=== PATIENT | male | born 1955 | race Caucasian/White ===

== ENCOUNTER 2019-01-17 08:38 | Day surgery (SDC) | payer MEDICARE, OTHER ==
[~2019-01-17] VITALS: Ht 175.3 cm; Wt 112.3 kg
[~2019-01-17 08:38] MED LIST: ASPI81EC; ATEN100 PO; ATEN25; ATOR10; Amlodipine Besyl5 MG PO; FEXPSEER; Fish Oil 10001000 MG PO; LANS30EC; LISI20 PO; MULTI VITAMIN1 EACH PO; OXYACE10 PO; RXLORA1 PO; RXOXYACE PO; TAMS.4ER PO; VITAMIN D400 UNI1 PO
== END 2019-01-17 11:01 | disposition home or self-care (01) ==
LOC: ORSCSDS 08:38
PROVIDERS: Internal Medicine Gastroenterology
PROC: 0DBE8ZX Excision of Large Intestine, Via Natural or Artificial Opening Endoscopic, Diagnostic (ICD-10-PCS; principal; 2019-01-17 10:00)
DX: R19.4 Change in bowel habit (principal); Z80.0 Family history of malignant neoplasm of digestive organs; K57.30 Diverticulosis of large intestine without perforation or abscess without bleeding; I10 Essential (primary) hypertension; Z79.899 Other long term (current) drug therapy
CPT/HCPCS: 88305; J2704; J7120

== ENCOUNTER 2023-12-26 09:10 | Day surgery (SDC) | payer MEDICARE, OTHER ==
[~2023-12-26] VITALS: Ht 175.3 cm; Wt 107.8 kg
[~2023-12-26 09:10] MED LIST changes: +Lactated Ringer's 1,000 ML IV ONE; +propofoL 50 ML IV ONE
[2023-12-26] MEDS ORDERED: TELM20 (09:28)
[2023-12-26] MEDS ORDERED: Lactated Ringer's 1,000 ML IV ONE (10:06)
[2023-12-26 11:21] VITALS: BP 153/66
== END 2023-12-26 11:15 | disposition home or self-care (01) ==
LOC: ORSCSDS 09:10
PROVIDERS: Internal Medicine Gastroenterology
PROC: 0DBH8ZX Excision of Cecum, Via Natural or Artificial Opening Endoscopic, Diagnostic (ICD-10-PCS; principal; 2023-12-26 10:30)
PROC: 0DBN8ZX Excision of Sigmoid Colon, Via Natural or Artificial Opening Endoscopic, Diagnostic (ICD-10-PCS; principal; 2023-12-26 10:30)
DX: Z12.11 Encounter for screening for malignant neoplasm of colon (principal); Z86.010 Personal history of colon polyps; Z80.0 Family history of malignant neoplasm of digestive organs; D12.0 Benign neoplasm of cecum; K63.5 Polyp of colon; K57.30 Diverticulosis of large intestine without perforation or abscess without bleeding; Z79.899 Other long term (current) drug therapy
CPT/HCPCS: 88305; J2704; J7120

== ENCOUNTER → 2025-04-29 | Outpatient (CLI) | payer MEDICARE, OTHER ==
[~2025-04-29] MED LIST changes: -Lactated Ringer's 1,000 ML IV ONE; +TELM20; -propofoL 50 ML IV ONE
[2025-04-29 18:48] LABS: Source, Urine Voided
[2025-04-29 19:40] LABS: Bilirubin, Urine Neg (Neg); Color, Urine Yellow (P-Yellow); Glucose Qualitative, Urine Neg (Neg); Ketones, Urine Neg (Neg); Leukocyte Esterase, Urine 3+ (Neg); Protein, Urine 2+ (Neg); Specific Gravity, Urine 1.010 (1.003-1.022); Urobilinogen, Urine NORM (Normal)
[2025-04-29 19:59] LABS: Red Blood Cells, Urine 0-2 /hpf (0-2); White Blood Cells, Urine 50-100 /hpf (0-5)
== END ==
LOC: LAB SHORT 18:46 → LAB 18:46
PROVIDERS: Urology
DX: N39.0 Urinary tract infection, site not specified (principal)
CPT/HCPCS: 81001; 87077; 87086; 87186

== ENCOUNTER → 2025-06-11 | Outpatient (CLI) | payer MEDICARE, OTHER | END | disposition home or self-care (01) | LOC: LAB 11:10 → LAB SHORT 11:10 | DX: N39.0 Urinary tract infection, site not specified (principal) | CPT/HCPCS: 87077; 87086; 87186 ==

== ENCOUNTER → 2025-06-24 | Outpatient (CLI) | payer MEDICARE, OTHER | END | disposition home or self-care (01) | LOC: LAB SHORT 19:47 → LAB 19:47 | DX: N39.0 Urinary tract infection, site not specified (principal) | CPT/HCPCS: 87086 ==

== ENCOUNTER 2025-06-30 14:29 | Emergency (ER) | payer MEDICARE, OTHER ==
[~2025-06-30] VITALS: Ht 175.3 cm; Wt 110.0 kg
[2025-06-30] MEDS ORDERED: Percocet 5-3251 EACH PO (17:44)
[2025-06-30 18:17] VITALS: BP 142/60
== END 2025-06-30 18:20 | disposition home or self-care (01) ==
LOC: ER 14:29
DX: S01.112A Laceration without foreign body of left eyelid and periocular area, initial encounter (principal); M25.512 Pain in left shoulder; R07.89 Other chest pain; M79.672 Pain in left foot; W17.89XA Other fall from one level to another, initial encounter; Z88.2 Allergy status to sulfonamides; Z88.0 Allergy status to penicillin; Z79.899 Other long term (current) drug therapy
CPT/HCPCS: 70450; 71101; 99284-25; A9270